=== PATIENT | male | born 1995 | race Caucasian/White ===

== ENCOUNTER 2023-07-06 18:21 | Emergency (ER) | payer OTHER, BC, SELFPAY ==
[2023-07-06 18:31] VITALS: BP 152/85; RESP 18; TEMP 36.8; O2SAT 98; BMI 25.4
[2023-07-06 18:44] VITALS: PULSE 66
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
[2023-07-06] MEDS: ADACEL DIPH,PERTUSS(ACELL),TET VAC/PF 0.5 ML ADULT SYRINGE IM (19:53)
--- NOTE | 2023-07-06 20:13 | PC.NURSE ---
bilateral hip and left shoulder wounds cleansed with hibiclense, patted dry then covered with xeroform, telfa and tape. Patient tolerated with minimal pain
[2023-07-06] MEDS: IBUPROFEN 400 MG TABLET 800 MG PO (20:34)
--- NOTE | 2023-07-06 20:40 | XR_ITS ---
The [address] [address] Patient Name: JAGDISH PENALOZA MRN: [id number] date: 1995 Sex: M Assigned Patient Location: ER Current Patient Location: ER Accession/Order Number: [id number] Exam Date: 07/06/2023 20:40 Report Date: 07/06/2023 21:20 At the request of: CLINT VILLAVICENCIO Procedure: XR hand LT min 3V EXAM: XR hand LT min 3V HISTORY: injury COMPARISON: None TECHNIQUE: 3 view study FINDINGS: Overall bony architecture is normal. Joint spaces are well-maintained. Soft tissues are unremarkable. XR/XR hand LT min 3V IMPRESSION: No evidence for acute fracture or dislocation. Electronically authenticated by: Higinio GARIBAY Date: 07/06/2023 21:20
--- NOTE | 2023-07-06 21:34 | PC.NURSE ---
Patient placed in left thumb spica brace. Patient instructed on how to place brace on and is able to return demonstration.
[2023-07-06 21:46] VITALS: PULSE 78; RESP 17; O2SAT 99
== END 2023-07-06 21:48 | disposition home or self-care (01) ==
PROVIDERS: Emergency Provider Emergency Medicine
DX: S40.212A Abrasion of left shoulder, initial encounter (principal); S63.602A Unspecified sprain of left thumb, initial encounter; S49.92XA Unspecified injury of left shoulder and upper arm, initial encounter; V43.52XA Car driver injured in collision with other type car in traffic accident, initial encounter
CPT/HCPCS: 73030; 73130; 73140; 90471; 90715; 99285